=== PATIENT | female | born 1975 | race Caucasian/White ===

== ENCOUNTER 2018-04-17 11:25 | Emergency (ER) | payer OTHER ==
[~2018-04-17] VITALS: Ht 162.6 cm; Wt 74.8 kg
[2018-04-17 11:26] VITALS: BP 110/60
--- NOTE | 2018-04-17 11:30 | NUR ---
42 YO F BIB SELF W/ C/O LEFT SUBSTERNAL CHEST PAIN SINCE SUNDAY. PT REPORTS N/V AND NECK PAIN. DENIES RADIATION TO THE ARM OR JAW. REPORTS DRY COUGH. AAOX4, RR EVEN AND UNLABORED. SPEAKING IN FULL, COMPLETE SENTENCES. SKIN WARM/DRY TO THE TOUCH AND COLOR APPROPRIATE FOR ETHNICITY. AMBULATORY W/ STEADY GAIT. PT VSS, BED DOWN, BEDRAIL UP X 1, ER MD AWARE AND NOTIFIED OF PT STATUS. HX DENIES RX TYLENOL
--- NOTE | 2018-04-17 11:40 | NUR ---
Patient being evaluated by physician at bedside.
[2018-04-17 11:45] LABS: BASOPHILS % (AUTO) 0.6 % (0.0-2.0); EOSINOPHILS # (AUTO) 0.1 K/uL (0-0.4); EOSINOPHILS % (AUTO) 1.4 % (0.0-4.0); HEMATOCRIT 39.2 % (36-48); LYMPHOCYTES # (AUTO) 2.2 K/uL (2.5-16.5); LYMPHOCYTES % (AUTO) 28.2 % (20.5-51.1); MEAN CORPUSCULAR HEMOGLOBIN 31 pg (27-31); MEAN CORPUSCULAR HGB CONC 33 g/dL (33-37); MEAN CORPUSCULAR VOLUME 92.3 fL (80-94); MONOCYTES # (AUTO) 0.4 K/uL (0.8-1.0); NEUTROPHILS # (AUTO) 5.1 K/uL (1.8-7.7); NEUTROPHILS % (AUTO) 64.8 % (42.2-75.2); PLATELET COUNT (AUTO) 171 K/uL (140-450); RED BLOOD CELL COUNT(AUTO) 4.25 MIL/uL (4.20-5.40); RED CELL DISTRIBUTION WIDTH 12.2 % (11.6-13.7); WHITE BLOOD COUNT (AUTO) 7.8 K/uL (4.8-10.8)
[2018-04-17] MEDS ORDERED: NACL 0.9% 1,000 ML IV ONE (12:20)
[2018-04-17] MEDS ORDERED: KETOROLAC 15 MG/ML VIAL IVP ONE (12:20)
[2018-04-17 15:36] LABS: ANION GAP 15.5 (8-16); CARBON DIOXIDE 25.7 mmol/L (21-32); CREATININE 0.9 mg/dL (0.6-1.3); POTASSIUM 3.2 mmol/L (3.5-5.1)
[2018-04-17 15:39] LABS: ALBUMIN 3.9 g/dL (3.4-5.0); TOTAL BILIRUBIN 0.4 mg/dL (0.0-1.0)
[2018-04-17 16:50] VITALS: BP 117/64
--- NOTE | 2018-04-17 16:51 | NUR ---
Patient discharged with v/s stable. Written and verbal after care instructions given and explained. Patient alert, oriented and verbalized understanding of instructions. Ambulatory with steady gait. All questions addressed prior to discharge. ID band removed. Patient advised to follow up with PMD. Rx of ZOFRAN, NAPROXEN given. Patient educated on indication of medication including possible reaction and side effects. Opportunity to ask questions provided and answered.
== END 2018-04-17 16:51 | disposition home or self-care (01) ==
LOC: MED 11:25
DX: B34.9 Viral infection, unspecified (principal)
CPT/HCPCS: 36415; 80053; 81002; 81025; 84484; 85025; 87804; 93005; 96361; 96374; 99284; J1885; J7030

== ENCOUNTER 2018-05-10 14:27 | Emergency (ER) | payer OTHER ==
[~2018-05-10] VITALS: Ht 154.9 cm; Wt 74.8 kg
[2018-05-10 14:35] VITALS: BP 118/57
--- NOTE | 2018-05-10 14:40 | NUR ---
42 Y/O M W/C/O CHEST PAIN ALL DAY THAT RADIATES TO L HAND. PT ALSO C/O NUMBNESS IN HANDS TODAY. PT DENIES N/V/D; SKIN IS INTACT, PINK/WARM/DRY; AAOX4, PERRL, WITH EVEN AND STEADY GAIT; LUNGS CLEAR BL, BREATHING UNLABORED; HR EVEN AND REGULAR, BL PERIPHERAL PULSES PRESENT; BS ACTIVE X4, NO TENDERNESS TO PALPATION, NO HEPATOSPLENOMEGALLY PALPATED, RESONANT TO PERCUSSION; PT DENIES ANY FEVER, SOB, OR COUGH AT THIS TIME; PT STATES 9/10 PAIN AT THIS TIME; VSS; PATIENT POSITIONED FOR COMFORT; HOB ELEVATED; BEDRAILS UP X2; BED DOWN.
[2018-05-10] MEDS ORDERED: ACETAMINOPHEN 325 MG TAB PO ONE (15:05)
[2018-05-10] MEDS ORDERED: ASPIRIN 81 MG TAB.CHEW PO ONE (15:05)
[2018-05-10] MEDS ORDERED: LORazepam 1 MG TAB PO ONE (15:05)
[2018-05-10 15:34] LABS: BASOPHILS % (AUTO) 0.4 % (0.0-2.0); EOSINOPHILS % (AUTO) 0.4 % (0.0-4.0); HEMOGLOBIN 12.6 g/dL (12.0-16.0); LYMPHOCYTES # (AUTO) 1.3 K/uL (2.5-16.5); LYMPHOCYTES % (AUTO) 16.4 % (20.5-51.1); MEAN CORPUSCULAR HEMOGLOBIN 30 pg (27-31); MEAN CORPUSCULAR HGB CONC 32 g/dL (33-37); MEAN CORPUSCULAR VOLUME 93.6 fL (80-94); MONOCYTES # (AUTO) 0.3 K/uL (0.8-1.0); MONOCYTES % (AUTO) 3.6 % (1.7-9.3); NEUTROPHILS # (AUTO) 6.2 K/uL (1.8-7.7); NEUTROPHILS % (AUTO) 79.2 % (42.2-75.2); PLATELET COUNT (AUTO) 167 K/uL (140-450); RED BLOOD CELL COUNT(AUTO) 4.17 MIL/uL (4.20-5.40); RED CELL DISTRIBUTION WIDTH 12.3 % (11.6-13.7); WHITE BLOOD COUNT (AUTO) 7.8 K/uL (4.8-10.8)
[2018-05-10 15:42] LABS: CARBON DIOXIDE 28.7 mmol/L (21-32); CREATININE 0.7 mg/dL (0.6-1.3); POTASSIUM 3.7 mmol/L (3.5-5.1)
[2018-05-10 15:48] LABS: ALBUMIN 3.7 g/dL (3.4-5.0); TOTAL BILIRUBIN 0.2 mg/dL (0.0-1.0)
[2018-05-10 16:30] VITALS: BP 128/62
--- NOTE | 2018-05-10 16:30 | NUR ---
Patient discharged with v/s stable. Written and verbal after care instructions given and explained. Patient alert, oriented and verbalized understanding of instructions. Ambulatory with steady gait. All questions addressed prior to discharge. ID band removed. Patient advised to follow up with PMD. Rx of XANAX 0.5MG given. Patient educated on indication of medication including possible reaction and side effects. Opportunity to ask questions provided and answered.
== END 2018-05-10 16:30 | disposition home or self-care (01) ==
LOC: MED 14:27
DX: F41.9 Anxiety disorder, unspecified (principal); F43.9 Reaction to severe stress, unspecified; R07.89 Other chest pain; Z90.49 Acquired absence of other specified parts of digestive tract
CPT/HCPCS: 36415; 71045; 80053; 84484; 85025; 93005; 99284; Q0092

== ENCOUNTER 2018-11-22 11:09 | Emergency (ER) | payer OTHER ==
[~2018-11-22] VITALS: Ht 152.4 cm; Wt 73.7 kg
[2018-11-22 11:13] VITALS: BP 116/53
--- NOTE | 2018-11-22 11:24 | NUR ---
PATIENT AMBULATED TO BED 5 AT THIS TIME.
--- NOTE | 2018-11-22 11:30 | NUR ---
PT PRESENTS TO ED WITH C/O HEADACHE X3 DAYS, CHEST PRESSURE X1 DAY, VOMITING SINCE WAKING UP. PT STATES HER HEAD FEELS HEAVY WITH PAIN AT 10/10. PT REPORTS CHEST PRESSURE THAT RADIATES TO LT SHOULDER. MEDHX:HLD RX:ATROVASTAITN
--- NOTE | 2018-11-22 11:45 | NUR ---
Dr Bynum evaluating pt at bedside.
[2018-11-22] MEDS ORDERED: ONDANSETRON 4 MG ODT PO ONE (11:50)
[2018-11-22] MEDS ORDERED: KETOROLAC 60 MG/2 ML VIAL IM ONE (11:50)
[2018-11-22 12:07] VITALS: BP 110/62
--- NOTE | 2018-11-22 12:07 | NUR ---
Patient discharged with v/s stable. Written and verbal after care instructions given and explained. Patient alert, oriented and verbalized understanding of instructions. Ambulatory with steady gait. All questions addressed prior to discharge. ID band removed. Patient advised to follow up with PMD. Rx of Motrin, norco and cipro given. Patient educated on indication of medication including possible reaction and side effects. Opportunity to ask questions provided and answered.
== END 2018-11-22 12:07 | disposition home or self-care (01) ==
LOC: MED 11:09
DX: N39.0 Urinary tract infection, site not specified (principal); R51 Headache; R07.9 Chest pain, unspecified
CPT/HCPCS: 81002; 81025; 93005; 96372; 99283; J1885; Q0162

== ENCOUNTER 2018-11-25 15:18 | Emergency (ER) | payer OTHER ==
[~2018-11-25] VITALS: Ht 152.4 cm; Wt 75.3 kg
[2018-11-25 15:44] VITALS: BP 116/77
[2018-11-25] MEDS ORDERED: PROCHLORPERAZINE 10 MG/2 ML VIAL IVP ONE (16:10)
[2018-11-25] MEDS ORDERED: NACL 0.9% 1,000 ML IV ONE (16:10)
[2018-11-25] MEDS ORDERED: KETOROLAC 30 MG/ML VIAL IVP ONE (16:10)
--- NOTE | 2018-11-25 16:36 | NUR ---
PT BIB SELF FOR HEADACHE FOR 5 DAYS. PT HAS HX OF MIGRAINES. PT AWAKE AND ALERT, PERRL, PT HAS LIGHT SENSITIVITY. LIGHTS DIMMNED, PT POSITIONED TO COMFORT, FAMILY MEMBER AT BEDSIDE.
--- NOTE | 2018-11-25 17:15 | NUR ---
PT RESTING IN BED, NO NEW NEEDS AT THIS TIME.
--- NOTE | 2018-11-25 17:35 | NUR ---
Patient discharged with v/s stable. Written and verbal after care instructions given and explained. Patient alert, oriented and verbalized understanding of instructions. Ambulatory with steady gait. All questions addressed prior to discharge. ID band removed. Patient advised to follow up with PMD. Rx of NAPROSYN, ZOFRAN given. Patient educated on indication of medication including possible reaction and side effects. Opportunity to ask questions provided and answered.
[2018-11-25 17:36] VITALS: BP 122/70
== END 2018-11-25 17:35 | disposition home or self-care (01) ==
LOC: MED 15:18
DX: G44.209 Tension-type headache, unspecified, not intractable (principal)
CPT/HCPCS: 81025; 96361; 96374; 96375; 99283; J0780; J1885; J7030